=== PATIENT | male | born 1945 | race Caucasian/White ===

== ENCOUNTER 2023-06-25 05:02 | Day surgery (SDC) | payer OTHER, MEDICARE ==
[2023-06-24 08:49] VITALS: BMI 28.3
[2023-06-25 10:08] VITALS: TEMP 97.2
[2023-06-25 10:35] VITALS: BP 132/77; PULSE 81; RESP 13
== END 2023-06-25 10:40 | disposition home or self-care (01) ==
LOC: JASU-ENDO 05:02
PROVIDERS: ATTEND Internal Medicine Gastroenterology
PROC: 0DB68ZX Excision of Stomach, Via Natural or Artificial Opening Endoscopic, Diagnostic (ICD-10-PCS; 2023-06-25)
PROC: 0DB38ZX Excision of Lower Esophagus, Via Natural or Artificial Opening Endoscopic, Diagnostic (ICD-10-PCS; 2023-06-25)
PROC: 0DB98ZX Excision of Duodenum, Via Natural or Artificial Opening Endoscopic, Diagnostic (ICD-10-PCS; principal; 2023-06-25 08:30)
DX: K29.50 Unspecified chronic gastritis without bleeding (principal); K21.00 Gastro-esophageal reflux disease with esophagitis, without bleeding; K44.9 Diaphragmatic hernia without obstruction or gangrene; K31.9 Disease of stomach and duodenum, unspecified; Z87.19 Personal history of other diseases of the digestive system
CPT/HCPCS: 88305-TC; 88342-TC

== ENCOUNTER 2024-03-25 18:40 | Emergency (ER) | payer OTHER, MEDICARE ==
[2024-03-25 18:59] VITALS: RESP 18; BMI 28.3
[2024-03-25] MEDS ORDERED: MECLIZINE HCL 25 MG TABLET (FP) ONE (20:23)
[2024-03-25] MEDS: MECLIZINE HCL 25 MG TABLET (FP) PO ONE (20:26)
[2024-03-25] MEDS ORDERED: ACETAMINOPHEN INJECTION 100 ML IVPB ONE (21:41)
[2024-03-25] MEDS: ACETAMINOPHEN 1000 MG/100 ML BAG IVPB ONE (21:45)
[2024-03-26 01:15] VITALS: BP 116/62
[2024-03-26 01:16] VITALS: PULSE 75; TEMP 98
[2024-03-26 01:54] LABS: BASO % 0.6 % (0-2.0); EOS % 6.2 % (0-4.5); HEMATOCRIT 42.8 % (35.4-49); HEMOGLOBIN 14.4 GM/dL (11.7-16.9); LYMPH % 21.6 % (8-40); MCH 31.4 pg (25.7-33.7); MCHC 33.7 g/dl (32.0-35.9); MEAN CELL VOLUME 93.3 fl (80-96); MEAN PLT VOLUME 6.9 fl (7.5-11.1); MONO % 7.8 % (3.8-10.2); NEUT % 63.8 % (42.8-82.8); PLATELET COUNT 232 10^3/uL (134-434); RBC 4.58 M/mm3 (4.00-5.60); RDW 13.1 % (11.9-15.9); WHITE BLOOD COUNT 10.8 K/mm3 (4.0-10.0)
[2024-03-26 02:12] LABS: POTASSIUM 3.9 mmol/L (3.5-5.1)
[2024-03-26 02:14] LABS: CALCIUM 9.1 mg/dL (8.5-10.1)
[2024-03-26 02:17] LABS: CREATININE 1.1 mg/dL (0.55-1.3)
[2024-03-26 02:19] LABS: BILIRUBIN,TOTAL 0.7 mg/dL (0.2-1); TOT PROT 7.1 g/dl (6.4-8.2)
== END 2024-03-26 01:43 | disposition short-term general hospital (02) ==
LOC: JER 18:40
PROC: 3E033NZ Introduction of Analgesics, Hypnotics, Sedatives into Peripheral Vein, Percutaneous Approach (ICD-10-PCS; principal; 2024-03-25)
DX: I62.03 Nontraumatic chronic subdural hemorrhage (principal); R42 Dizziness and giddiness; R51.9 Headache, unspecified
CPT/HCPCS: 70450-TC; 80053; 85025; 93005; 93010; 99285-25; J0131